=== PATIENT | female | born 1995 | race Caucasian/White ===

== ENCOUNTER 2018-09-24 12:18 | Emergency (ER) | payer SELFPAY ==
[2018-09-24 12:26] VITALS: BP 100/64; PULSE 73; TEMP 98.2; BMI 23.8
[2018-09-24] MEDS ORDERED: IBUPROFEN 600 MG TABLET (FP) PO ONE ×2 (13:49→13:59)
[2018-09-24] MEDS ORDERED: DEXAMETHASONE SOD PHOSPHATE 10 MG/1 ML VIAL IM ONE (14:24)
[2018-09-24] MEDS ORDERED: PENICILLIN G BENZATHINE 1,200,000 UNIT/2 ML PFS IM ONE (14:24)
--- NOTE | 2018-09-24 14:35 | PDOC ---
History of Present Illness - General Chief Complaint: Sore Throat Stated Complaint: FEVER/SORE THROAT Time Seen by Provider: 09/24/18 13:21 History Source: Patient Exam Limitations: No Limitations Past History - Past Medical History Allergies/Adverse Reactions: Allergies Allergy/AdvReac Type Severity Reaction Status Date / Time No Known Allergies Allergy Verified 09/24/18 12:23 Home Medications: Ambulatory Orders NK [No Known Home Medication] 09/24/18 Anemia: Yes COPD: No - Immunization History Immunization Up to Date: Yes - Suicide/Smoking/Psychosocial Hx Smoking History: Never smoked Hx Alcohol Use: No Drug/Substance Use Hx: No Substance Use Type: None *Physical Exam - Vital Signs Last Vital Signs Temp Pulse Resp BP Pulse Ox 98.2 F 73 18 100/64 98 09/24/18 12:23 09/24/18 12:23 09/24/18 12:23 09/24/18 12:23 09/24/18 12:23 - Physical Exam General Appearance: No: Apparent Distress HEENT: positive: TMs Normal, Pharyngeal Erythema, Tonsillar Exudate (B/L). negative: Muffled/Hoarse voice, Nasal Congestion, Rhinorrhea Neck: positive: Other (+B/L anterior cervical lymphadenopathy) Respiratory/Chest: positive: Lungs Clear, Normal Breath Sounds. negative: Respiratory Distress Cardiovascular: positive: Regular Rhythm, Regular Rate, S1, S2. negative: Murmur Gastrointestinal/Abdominal: positive: Normal Bowel Sounds, Soft. negative: Tender, Distended, Guarding, Rebound Integumentary: positive: Normal Color Neurologic: positive: Fully Oriented, Alert, Normal Mood/Affect Moderate Sedation - Procedure Monitoring Vital Signs: Procedure Monitoring Vital Signs Temperature 98.2 F 09/24/18 12:23 Pulse Rate 73 09/24/18 12:23 Respiratory Rate 18 09/24/18 12:23 Blood Pressure 100/64 09/24/18 12:23 O2 Sat by Pulse Oximetry (%) 98 09/24/18 12:23 ED Treatment Course - Medications Given in the ED: ED Medications Discontinued Medications Generic Name Dose Route Start Last Admin Trade Name Freq PRN Reason Stop Dose Admin Ibuprofen 600 mg 09/24/18 13:49 09/24/18 14:00 Motrin - PO 09/24/18 13:50 600 mg ONCE ONE Administration Medical Decision Making - Medical Decision Making 22 y/o F hx of asthma presents with fever x 3 days along with sore throat, mild L ear pain and pain on swallowing. Denies cough, sob, cp, abd pain, rash. Has not taken any antipyretics today. Rapid strep positive Treated with Motrin, Decadron and IM Penicillin 09/24/18 14:30 *DC/Admit/Observation/Transfer Diagnosis at time of Disposition: Strep pharyngitis - Discharge Dispostion Disposition: HOME Condition at time of disposition: Stable Decision to Admit order: No - Referrals Referrals: ON STAFF,NOT [Primary Care Provider] - - Patient Instructions Printed Discharge Instructions: DI for Strep Throat Additional Instructions: Thank you for choosing [facility]. It was a pleasure taking care of you. You were found to have strep throat. You may take Motrin 600 mg every 4 hours by mouth as needed for mild to moderate pain. Take Motrin with food. Do salt water gargles Follow-up with your doctors in 2-3 days. Return to the Emergency Department if your symptoms worsen or persist or have other concerning symptoms. - Post Discharge Activity Forms/Work/School Notes: Back to School
[2018-09-24] MEDS ORDERED: PENICILLIN G BENZATHINE 2,400,000 UNIT/4 ML PFS ONE (14:36)
[2018-09-24] MEDS ORDERED: DEXAMETHASONE SOD PHOSPHATE 10 MG/1 ML VIAL ONE (14:36)
== END 2018-09-24 14:42 | disposition home or self-care (01) ==
LOC: JERFT 12:18
PROC: 3E0333Z Introduction of Anti-inflammatory into Peripheral Vein, Percutaneous Approach (ICD-10-PCS; principal; 2018-09-24)
PROC: 3E02329 Introduction of Other Anti-infective into Muscle, Percutaneous Approach (ICD-10-PCS; 2018-09-24)
DX: J02.0 Streptococcal pharyngitis (principal); B95.0 Streptococcus, group A, as the cause of diseases classified elsewhere
CPT/HCPCS: 36415; 86308; 87880; 99281-25; J1100